=== PATIENT | female | born 2000 | race Caucasian/White ===

== ENCOUNTER 2024-03-17 20:57 | Emergency (ER) | payer OTHER, SELFPAY | END 2024-03-17 21:48 | disposition home or self-care (01) | LOC: BURERS 20:57 | DX: S93.402A Sprain of unspecified ligament of left ankle, initial encounter (principal); F17.200 Nicotine dependence, unspecified, uncomplicated; W01.0XXA Fall on same level from slipping, tripping and stumbling without subsequent striking against object, initial encounter ==